=== PATIENT | female | born 1940 | race Hispanic/Latino ===

== ENCOUNTER 2018-01-21 09:45 | Emergency (ER) | payer MEDICARE ==
[~2018-01-21 09:45] MED LIST: CHOL50004 PO; EZET10 PO; GABA-531 PO; LINA5TAB PO; LIOT5TAB8 PO; LOSA100T29 PO; METF500T6 PO
== END 2018-01-21 11:28 | disposition home or self-care (01) ==
LOC: EDH 09:45
DX: S80.211A Abrasion, right knee, initial encounter (principal); S00.01XA Abrasion of scalp, initial encounter; E11.9 Type 2 diabetes mellitus without complications; E78.5 Hyperlipidemia, unspecified; I10 Essential (primary) hypertension; Z90.710 Acquired absence of both cervix and uterus; Z98.890 Other specified postprocedural states; W18.39XA Other fall on same level, initial encounter; Y93.01 Activity, walking, marching and hiking; Y92.89 Other specified places as the place of occurrence of the external cause; Y99.8 Other external cause status
CPT/HCPCS: 70450; 73562

== ENCOUNTER → 2018-08-15 | Outpatient (CLI) | payer MEDICARE ==
[~2018-08-15] MED LIST changes: +LOSA100T20 PO; -LOSA100T29 PO; +METF-444 PO; -METF500T6 PO
== END | disposition home or self-care (01) ==
LOC: RAH 14:53
PROVIDERS: ATTEND Family Medicine
DX: M79.642 Pain in left hand (principal); R60.0 Localized edema; R29.898 Other symptoms and signs involving the musculoskeletal system
CPT/HCPCS: 73218

== ENCOUNTER 2018-08-27 14:18 | Emergency (ER) | payer MEDICARE ==
[2018-08-27] MEDS ORDERED: ALBUTEROL SULFATE 0.083% 2.5 MG/3 ML INH IH ONE (14:42)
[2018-08-27 15:08] LABS: BASOPHILS % (AUTO) 0.1 % (0.0-5.0); EOSINOPHILS % (AUTO) 0.4 % (0.0-8.0); HEMATOCRIT 38.1 % (36-48); LYMPHOCYTES % (AUTO) 32.8 % (21.0-51.0); MEAN CORPUSCULAR HEMOGLOBIN 29.3 pg (27.0-33.0); MEAN CORPUSCULAR HGB CONC 32.9 g/dL (32.0-36.0); MEAN CORPUSCULAR VOLUME 88.8 fL (79-99); MONOCYTES % (AUTO) 11.3 % (3.0-13.0); NEUTROPHILS % (AUTO) 55.4 % (40.0-77.0); NUCLEATED RED BLOOD CELLS 0.1 % (0.0-0.19); PLATELET COUNT (AUTO) 285 K/uL (130-400); RED BLOOD CELL COUNT(AUTO) 4.29 MIL/uL (4.00-5.50); RED CELL DISTRIBUTION WIDTH 14.6 % (11.0-15.5); WHITE BLOOD COUNT (AUTO) 11.1 K/uL (4.8-10.8)
[2018-08-27 16:02] LABS: CREATININE 1.4 mg/dL (0.5-1.5)
[2018-08-27 16:03] LABS: B-TYPE NATRIURETIC PEPTIDE 48 pg/mL (0-100)
== END 2018-08-27 16:41 | disposition home or self-care (01) ==
LOC: EDH 14:18
DX: J20.9 Acute bronchitis, unspecified (principal); I10 Essential (primary) hypertension; E11.9 Type 2 diabetes mellitus without complications; E78.5 Hyperlipidemia, unspecified; Z90.710 Acquired absence of both cervix and uterus; Z98.890 Other specified postprocedural states
CPT/HCPCS: 36415; 71046; 80048; 83880; 84484; 85025; 87804; 93005; 94640

== ENCOUNTER → 2018-10-24 | Outpatient (CLI) | payer MEDICARE ==
[~2018-10-24] MED LIST changes: -LOSA100T20 PO; +LOSA100T58 PO
== END | disposition home or self-care (01) ==
LOC: RAH 12:26
PROVIDERS: ATTEND Family Medicine
DX: S83.241A Other tear of medial meniscus, current injury, right knee, initial encounter (principal); S83.281A Other tear of lateral meniscus, current injury, right knee, initial encounter; S83.411A Sprain of medial collateral ligament of right knee, initial encounter; M17.11 Unilateral primary osteoarthritis, right knee; M25.461 Effusion, right knee; X58.XXXA Exposure to other specified factors, initial encounter; Y93.89 Activity, other specified; Y92.89 Other specified places as the place of occurrence of the external cause; Y99.8 Other external cause status
CPT/HCPCS: 73721

== ENCOUNTER 2019-12-24 01:44 | Inpatient (IN) | payer MEDICARE ==
[~2019-12-24] VITALS: Ht 165.1 cm; Wt 85.3 kg
[~2019-12-24 01:44] MED LIST changes: -EZET10 PO; +EZET10TA13 PO; +LIOT5TAB11 PO; -LIOT5TAB8 PO
[2019-12-24 02:18] LABS: BASOPHILS % (AUTO) 0.3 % (0.0-5.0); EOSINOPHILS % (AUTO) 2.8 % (0.0-8.0); HEMATOCRIT 33.2 % (36-48); LYMPHOCYTES % (AUTO) 26.5 % (21.0-51.0); MEAN CORPUSCULAR HEMOGLOBIN 29.7 pg (27.0-33.0); MEAN CORPUSCULAR HGB CONC 32.5 g/dL (32.0-36.0); MEAN CORPUSCULAR VOLUME 91.2 fL (79-99); MONOCYTES % (AUTO) 6.7 % (3.0-13.0); NEUTROPHILS % (AUTO) 62.9 % (40.0-77.0); PLATELET COUNT (AUTO) 226 K/uL (130-400); RED BLOOD CELL COUNT(AUTO) 3.64 MIL/uL (4.00-5.50); RED CELL DISTRIBUTION WIDTH 14.5 % (11.0-15.5); WHITE BLOOD COUNT (AUTO) 11.8 K/uL (4.8-10.8)
[2019-12-24] MEDS ORDERED: ONDANSETRON HCL 4 MG/2 ML VIAL ONE (02:19)
[2019-12-24] MEDS ORDERED: MORPHINE SULFATE 2 MG/ML 1ML SYG ONE (02:20)
[2019-12-24 02:29] LABS: INR 0.94 (0.85-1.15); PARTIAL THROMBOPLASTIN TIME 26.4 SEC (26.3-35.5); PROTHROMBIN TIME 10.2 SEC (9.6-11.6)
[2019-12-24 02:34] LABS: CREATININE 1.6 mg/dL (0.5-1.5); POTASSIUM 4.7 mmol/L (3.5-5.1)
[2019-12-24 02:39] LABS: ALBUMIN 3.8 g/dL (3.5-5.0); BILIRUBIN,TOTAL 0.4 mg/dL (0.2-1.0); TOTAL PROTEIN, SERUM 7.3 g/dL (6.0-8.3)
[2019-12-24 03:58] LABS: APPEARANCE,URINE Clear (CLEAR); BILIRUBIN,URINE Negative (NEGATIVE); COLOR,URINE Yellow (YELLOW); GLUCOSE, URINE (UA) Negative (NEGATIVE); KETONES,URINE Trace mg/dL (NEGATIVE); LEUKOCYTE ESTERASE ,URINE Negative (NEGATIVE); NITRATE,URINE Negative (NEGATIVE); OCCULT BLOOD,URINE Negative (NEGATIVE); PROTEIN,URINE Negative (NEGATIVE)
[2019-12-24 06:00] VITALS: BP 162/81
[2019-12-24] MEDS ORDERED: HYDRALAZINE HCL 20 MG/ML VIAL IV PRN (06:30)
[2019-12-24] MEDS: SODIUM CHLORIDE 0.9% 1000ML 1,000 ML IV SCH ×2 (06:30→21:57)
[2019-12-24] MEDS ORDERED: ONDANSETRON HCL 4 MG/2 ML VIAL IVP PRN (06:30)
[2019-12-24] MEDS ORDERED: CLONIDINE HCL 0.1 MG TABLET PO PRN (06:30)
[2019-12-24] MEDS ORDERED: NALOXONE HCL 0.4 MG/1 ML ML IVP PRN (06:45)
[2019-12-24] MEDS ORDERED: ACETAMINOPHEN 325 MG TAB PO PRN (06:45)
[2019-12-24] MEDS ORDERED: MORPHINE SULFATE 2 MG/ML 1ML SYG IVP PRN (06:45)
[2019-12-24] MEDS ORDERED: LINA5TAB PO (06:48)
[2019-12-24] MEDS ORDERED: OLOP2.5D5 OU (06:48)
[2019-12-24] MEDS ORDERED: PIOG30TA70 PO (06:48)
[2019-12-24] MEDS ORDERED: NAPR-1023 PO (06:48)
[2019-12-24] MEDS: MORPHINE SULFATE 2 MG/ML 1ML SYG IVP PRN ×4 (07:23→19:21)
[2019-12-24] MEDS: INSULIN R PO SS1 SQ SCH ×4 (07:30→21:00)
[2019-12-24 08:29] VITALS: BP 147/63
[2019-12-24] MEDS ORDERED: LOSARTAN 100 MG TABLET PO SCH (09:00)
[2019-12-24] MEDS: PANTOPRAZOLE SODIUM 40 MG TABLET.DR PO SCH ×2 (10:10→21:57)
[2019-12-24 11:16] VITALS: BP 146/70
[2019-12-24] MEDS ORDERED: ZOLPIDEM TARTRATE 5 MG TAB PO PRN (11:30)
[2019-12-24] MEDS ORDERED: METOCLOPRAMIDE 10 MG/2 ML VIAL IVP PRN (11:30)
[2019-12-24] MEDS ORDERED: ALPRAZOLAM 0.5 MG TABLET PO PRN (11:30)
[2019-12-24] MEDS ORDERED: DOCUSATE SODIUM 100 MG CAP PO PRN (11:30)
[2019-12-24] MEDS ORDERED: LIDOCAINE HCL-MPF 1% 2ML VIAL IV PRN (11:45)
[2019-12-24] MEDS ORDERED: DEXTROSE 50%-WATER 50 ML DISP.SYRIN IV PRN (11:45)
[2019-12-24] MEDS ORDERED: POTASSIUM CHLORIDE 20 MEQ ERTAB PO PRN (11:45)
[2019-12-24] MEDS ORDERED: POTASSIUM CHLORIDE 10% ELIXIR 20 MEQ/15 ML UDCUP PO PRN (11:45)
[2019-12-24] MEDS ORDERED: POTASSIUM CHLORIDE 20MEQ/100ML 100 ML IV PRN (11:45)
[2019-12-24] MEDS ORDERED: GLUCAGON 1MG KIT 1 MG ML IM PRN (11:45)
--- NOTE | 2019-12-24 12:28 | NUR ---
CALLED DR VIERA. 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 STATED HE IS GOING TO ENTER ORDER LATER. NO SX TODAY, POSSIBLE TOMORROW. ANTI-ROTATION BOOT ORDERED.
[2019-12-24] MEDS ORDERED: CEFAZOLIN SODIUM 1 GM VIAL IVP PRN (14:00)
[2019-12-24 16:15] VITALS: BP 150/66
--- NOTE | 2019-12-24 18:54 | NUR ---
INITIAL CM ASSESSMENT WITH DAUGHTER WENT TO PATIENT ROOM,BUT SHE STATED BEST TO CALL HER DAUGHTER SHE WAS TOO SLEEPY TO PROVIDE HISTORY; CALLED SANIYA, DAUGHTER- PATIENT LIVES WITH HER, IS MOSTLY INDEPENDENT OF ADLS, HAS PROVIDER HOURS 20/WK, NOT A FAMILY MEMBER- HOME IS SAFE AND ACCESSIBLE WITH A SMALL STEP OUTSIDE. NORMALLY USES NO DME, NOT EVEN A SHOWER CHAIR, BUT TWISTED HER KNEE LAST WEEK AND WAS USING A CANE- PUT THE OWN WRONG, FELL, BROKE HIP. ADVISED PATIENTS DAUGHTER THAT THERAPY AT A FACLITY WILL BE RECOMMENDED. AND THAT CM WILL FOLLOW UP POST SURGERY Addendum: 12/24/19 at 1859 by JEANCARLOS FARRAR RN CM Amended: Links added.
[2019-12-24 20:00] VITALS: BP 150/72
[2019-12-24] MEDS: LIOTHYRONINE 5 MCG PO SCH (21:00)
[2019-12-24] MEDS: EZETIMIBE 10 MG TAB PO SCH (21:57)
[2019-12-24 23:45] VITALS: BP 135/73
[2019-12-25] VITALS (25 sets, daily range): BP systolic 103–158; BP diastolic 50–79
[2019-12-25] MEDS: MORPHINE SULFATE 2 MG/ML 1ML SYG IVP PRN ×3 (04:11→14:08)
[2019-12-25 05:15] LABS: HEMATOCRIT 31.4 % (36-48); MEAN CORPUSCULAR HEMOGLOBIN 28.6 pg (27.0-33.0); MEAN CORPUSCULAR HGB CONC 31.5 g/dL (32.0-36.0); MEAN CORPUSCULAR VOLUME 90.8 fL (79-99); PLATELET COUNT (AUTO) 192 K/uL (130-400); RED BLOOD CELL COUNT(AUTO) 3.46 MIL/uL (4.00-5.50); RED CELL DISTRIBUTION WIDTH 14.5 % (11.0-15.5); WHITE BLOOD COUNT (AUTO) 8.3 K/uL (4.8-10.8)
[2019-12-25 05:28] LABS: CREATININE 1.1 mg/dL (0.5-1.5); POTASSIUM 4.2 mmol/L (3.5-5.1)
[2019-12-25 05:30] LABS: INR 0.95 (0.85-1.15); PARTIAL THROMBOPLASTIN TIME 28.8 SEC (26.3-35.5); PROTHROMBIN TIME 10.3 SEC (9.6-11.6)
[2019-12-25] MEDS: INSULIN R PO SS1 SQ SCH ×4 (06:39→21:00)
[2019-12-25] MEDS: LIOTHYRONINE 5 MCG PO SCH ×2 (09:00→21:00)
[2019-12-25] MEDS ORDERED: PAZEO OU PRN (09:00)
[2019-12-25] MEDS: PANTOPRAZOLE SODIUM 40 MG TABLET.DR PO SCH ×2 (09:30→21:12)
[2019-12-25] MEDS: LOSARTAN 100 MG TABLET PO SCH (09:30)
--- NOTE | 2019-12-25 10:34 | NUR ---
CM NOTE DAVE spoke with patient. She states she lives with daughter, Gem Rodriguez, [phone]. No home health but does have PHC with [facility] X 33.25 hours a week. DME: cane, BPM, glucometer (no insulin). Patient states she needs help with ADL's and does not drive. Family assists with ADL's. PCP is Dr. Frankie Livingston. Pharmacy is [facility] located on [address]. DCP is home.
--- NOTE | 2019-12-25 10:53 | NUR ---
PAIN patient denies pain at rest Addendum: 12/25/19 at 1054 by TAYLER BISHOP RN RN Amended: Links added.
--- NOTE | 2019-12-25 11:12 | NUR ---
RD NOTIFICATION PT NPO FOR PROCEDURE. WHEN MEDICALLY FEASIBLE RECOMMEND ADVANCE DIET TOLERATED TO HEART HEALTHY, 75GM CC DIET ORDER, VANILLA GLUCERNA BID. PT WITH PREVIOUS DECREASED APPETITE, LIKELY RELATED TO PAIN. PT LBM 12/23/19. RD TO CONTINUE TO MONITOR. PLEASE NOTIFY RD ADDITIONAL NUTRITION CONCERNS ARISE. THANK YOU. Addendum: 12/25/19 at [address] Amended: Links added.
[2019-12-25] MEDS ORDERED: KETOROLAC TROMETHAMINE 30MG/ML ONE (15:08)
[2019-12-25] MEDS ORDERED: PROPOFOL 10 MG/ML 20ML VIAL IV ONE (15:08)
[2019-12-25] MEDS ORDERED: DEXAMETHASONE SOD PHOSPHATE 10MG/ML 1ML VIAL ONE (15:08)
[2019-12-25] MEDS ORDERED: ONDANSETRON HCL 4 MG/2 ML VIAL ONE (15:08)
[2019-12-25] MEDS ORDERED: LIDOCAINE PF 2% 5ML ABBOJECT ONE (15:08)
[2019-12-25] MEDS ORDERED: FENTANYL CITRATE PF 50 MCG/1 ML 2ML VIAL ONE (15:09)
[2019-12-25] MEDS ORDERED: MIDAZOLAM HCL 1 MG/ML 2ML VIAL ONE (15:09)
[2019-12-25] MEDS ORDERED: ROPIVACAINE 0.5% 5MG/ML 30ML IJ ONE (15:11)
[2019-12-25] MEDS ORDERED: ROCURONIUM 10MG/1ML SYR 10 MG/ML ML ONE ×2 (15:22→16:13)
[2019-12-25] MEDS ORDERED: TRANEXAMIC ACID 1000MG/10ML ONE (15:49)
[2019-12-25] MEDS ORDERED: GLYCOPYRROLATE 1 MG/5 ML SYRINGE ONE (17:19)
[2019-12-25] MEDS ORDERED: NEOSTIGMINE 5MG/5ML SYR IV ONE (17:19)
[2019-12-25] MEDS: CEFAZOLIN SODIUM 1 GM VIAL IVP SCH ×2 (18:00→23:36)
[2019-12-25] MEDS: EZETIMIBE 10 MG TAB PO SCH (21:12)
--- NOTE | 2019-12-25 21:15 | NUR ---
MEDS SHIFT ASSESSMENT DONE, PLEASE REFER TO CHART. DUE MEDS ADMINISTERED, TOLERATED WELL. POST OP V/S STABLE. PT DENIES ANY PAINS AT THIS TIME. KEPT RESTED AND COMFORTABLE. CALL LIGHT WITHIN REACH. Addendum: 12/25/19 at 2328 by ISABELLE ENRIQUE RN RN Amended: Links added.
[2019-12-25] MEDS: SODIUM CHLORIDE 0.9% 1000ML 1,000 ML IV SCH ×2 (21:42→23:35)
[2019-12-26] VITALS (7 sets, daily range): BP systolic 94–126; BP diastolic 46–68
--- NOTE | 2019-12-26 02:00 | NUR ---
ROUNDS PT RESTING WELL, FAIRLY ASLEEP. NO DISTRESS NOTED. KEPT RESTED AND COMFORTABLE. CALL LIGHT WITHIN REACH.
--- NOTE | 2019-12-26 05:10 | NUR ---
ROUNDS METAL CUTTER IN TO DRAW BLOOD. PT DENIES ANY NEEDS AT THIS TIME. KEPT COMFORTABLE. FOR MORE CARE.
[2019-12-26 05:37] LABS: EOSINOPHILS % (AUTO) 1.8 % (0.0-8.0); HEMATOCRIT 23.9 % (36-48); LYMPHOCYTES % (AUTO) 8.3 % (21.0-51.0); MEAN CORPUSCULAR HEMOGLOBIN 29.6 pg (27.0-33.0); MEAN CORPUSCULAR HGB CONC 32.2 g/dL (32.0-36.0); MEAN CORPUSCULAR VOLUME 91.9 fL (79-99); MONOCYTES % (AUTO) 4.9 % (3.0-13.0); NEUTROPHILS % (AUTO) 84.7 % (40.0-77.0); PLATELET COUNT (AUTO) 163 K/uL (130-400); RED CELL DISTRIBUTION WIDTH 14.4 % (11.0-15.5); WHITE BLOOD COUNT (AUTO) 11.4 K/uL (4.8-10.8)
[2019-12-26] MEDS: INSULIN R PO SS1 SQ SCH ×4 (05:49→20:27)
[2019-12-26 05:50] LABS: CREATININE 1.1 mg/dL (0.5-1.5); POTASSIUM 4.3 mmol/L (3.5-5.1)
[2019-12-26] MEDS: PANTOPRAZOLE SODIUM 40 MG TABLET.DR PO SCH ×2 (08:50→20:24)
[2019-12-26] MEDS: LOSARTAN 100 MG TABLET PO SCH (08:50)
[2019-12-26] MEDS: NAPROXEN 500 MG TABLET PO PRN ×2 (08:52→20:25)
[2019-12-26] MEDS: LIOTHYRONINE 5 MCG PO SCH ×2 (09:00→20:27)
[2019-12-26] MEDS: CEFAZOLIN SODIUM 1 GM VIAL IVP SCH (10:26)
--- NOTE | 2019-12-26 11:28 | NUR ---
discussed plan of care with patient and with profile stitching machine operator Advised by [facility] staff that patient does not want to go to a facility. Discussed with STRIPPER [facility]EX- had talked to patient at bedside about going to a STR, WR or [facility]- patient agreed, but I iwll need to talk to daughter. Patient states that her sister told her that she will catch COVID and if she goes to a facility, Physical therapist is recommending rehab and patient aware. Advised STRIPPER LATEX will talk to family because patient will not be able to do outpatient rehab & home health PT is just 2-3 days week. Addendum: 12/26/19 at 1203 by JEANCARLOS FARRAR RN Amended: Links added.
[2019-12-26] MEDS: POLYETHYLENE GLYCOL 3350 17 GM POWD.PACK PO SCH (15:12)
--- NOTE | 2019-12-26 15:20 | NUR ---
REFERRAL TO [facility] CONSENT OBTAINED FROM DAUGHTER AND PATIENT- NO TONY MADE RE NO INFECIOTN AT [facility], BUT IP REHAB IS STAFFED WELL AND THERPAY IS GOOD. REFERRAL SENT. CALL TO [facility]. WILL SEND COVID FORM
[2019-12-26] MEDS: SODIUM CHLORIDE 0.9% 1000ML 1,000 ML IV SCH (18:30)
[2019-12-26] MEDS: APIXABAN 2.5 MG TABLET PO SCH (20:24)
[2019-12-26] MEDS: EZETIMIBE 10 MG TAB PO SCH (20:25)
--- NOTE | 2019-12-26 20:25 | NUR ---
MEDS SHIFT ASSESSMENT DONE, PLEASE REFER TO CHART. PT CLAIMS OF RT HIP SX SITE PAINS. DUE MEDS ADMINISTERED, NAPROSYN PO GIVEN FOR PAINS. PCP IN TO GIVE PT A BED BATH. WILL RE-ASSESS PT. Addendum: 12/26/19 at 2137 by ISABELLE ENRIQUE RN RN Amended: Links added.
--- NOTE | 2019-12-26 21:50 | NUR ---
BATH PCP IN AND GAVE PT A BED BATH, TOLERATED ACTIVITY WELL. STILL NO URINE OUTPUT AT THIS TIME. PT IS DUE TO VOID POST F/C REMOVAL. WILL CONTINUE TO MONITOR.
[2019-12-27] VITALS (7 sets, daily range): BP systolic 98–138; BP diastolic 47–61
--- NOTE | 2019-12-27 01:30 | NUR ---
ROUNDS PT FAIRLY ASLEEP WITH RESPIRATIONS EVEN AND UNLABORED. NO NOTED DISTRESS. KEPT UNDISTURBED FOR NOW. WILL MONITOR PT. CALL LIGHT WITHIN REACH.
--- NOTE | 2019-12-27 05:25 | NUR ---
ROUNDS PT IS ALREADY AWAKE. NO DISTRESS NOTED. NO CONCERNS VERBALIZED. KEPT COMFORTABLE. ABDUCTOR PILLOW STILL ON. FOR MORE CARE.
[2019-12-27] MEDS: INSULIN R PO SS1 SQ SCH ×4 (05:50→21:00)
[2019-12-27 06:20] LABS: MEAN CORPUSCULAR HEMOGLOBIN 28.9 pg (27.0-33.0); MEAN CORPUSCULAR HGB CONC 32.2 g/dL (32.0-36.0); MEAN CORPUSCULAR VOLUME 89.7 fL (79-99); PLATELET COUNT (AUTO) 149 K/uL (130-400); RED BLOOD CELL COUNT(AUTO) 2.32 MIL/uL (4.00-5.50); RED CELL DISTRIBUTION WIDTH 14.6 % (11.0-15.5); WHITE BLOOD COUNT (AUTO) 8.3 K/uL (4.8-10.8)
[2019-12-27 06:28] LABS: POTASSIUM 3.8 mmol/L (3.5-5.1)
[2019-12-27 06:48] LABS: HEMATOCRIT 20.8 % (36-48)
--- NOTE | 2019-12-27 07:00 | NUR ---
PAGE TRIED TO PAGE MAGNETIC OBSERVER FOR BENCHMARK BUT ANSWERING SERVICE IS HAVING TROUBLE WITH MAGNETIC OBSERVER STAFF AND ADVICE TO CALL AFTER 7AM.
--- NOTE | 2019-12-27 07:25 | NUR ---
RE-PAGED MAINORD GIANA ELIAS, AUTOMOTIVE GENERAL SALES MANAGER FOR [employer]CH[employer], VIA ANSWERING SERVICE TO REFER CRITICAL VALUES. AWAITING CALL BACK.
[2019-12-27 08:06] LABS: HEMATOCRIT 20.4 % (36-48)
[2019-12-27] MEDS: APIXABAN 2.5 MG TABLET PO SCH ×3 (08:35→20:41)
[2019-12-27] MEDS: LIOTHYRONINE 5 MCG PO SCH ×2 (08:35→20:42)
[2019-12-27] MEDS: LOSARTAN 100 MG TABLET PO SCH (09:41)
[2019-12-27] MEDS: POLYETHYLENE GLYCOL 3350 17 GM POWD.PACK PO SCH (09:42)
[2019-12-27] MEDS: PANTOPRAZOLE SODIUM 40 MG TABLET.DR PO SCH ×2 (09:42→20:42)
[2019-12-27] MEDS: NAPROXEN 500 MG TABLET PO PRN ×2 (09:47→20:44)
[2019-12-27] MEDS: SODIUM CHLORIDE 0.9% 1000ML 1,000 ML IV SCH (16:19)
--- NOTE | 2019-12-27 17:00 | NUR ---
ACCEPTED AT [facility]
[2019-12-27] MEDS: LACTULOSE 20 GM/30 ML UDCUP PO PRN (17:58)
[2019-12-27] MEDS: DOCUSATE SODIUM 100 MG CAP PO SCH (20:42)
[2019-12-27] MEDS: EZETIMIBE 10 MG TAB PO SCH (20:42)
[2019-12-28 03:52] VITALS: BP 139/70
[2019-12-28 04:17] LABS: BASOPHILS % (AUTO) 0.2 % (0.0-5.0); EOSINOPHILS % (AUTO) 3.6 % (0.0-8.0); HEMATOCRIT 24.5 % (36-48); LYMPHOCYTES % (AUTO) 20.3 % (21.0-51.0); MEAN CORPUSCULAR HEMOGLOBIN 30.1 pg (27.0-33.0); MEAN CORPUSCULAR HGB CONC 33.5 g/dL (32.0-36.0); MEAN CORPUSCULAR VOLUME 90.1 fL (79-99); MONOCYTES % (AUTO) 9.7 % (3.0-13.0); NEUTROPHILS % (AUTO) 65.6 % (40.0-77.0); PLATELET COUNT (AUTO) 168 K/uL (130-400); RED BLOOD CELL COUNT(AUTO) 2.72 MIL/uL (4.00-5.50); RED CELL DISTRIBUTION WIDTH 14.9 % (11.0-15.5); WHITE BLOOD COUNT (AUTO) 8.3 K/uL (4.8-10.8)
[2019-12-28 04:33] LABS: POTASSIUM 3.8 mmol/L (3.5-5.1)
[2019-12-28] MEDS: INSULIN R PO SS1 SQ SCH ×3 (05:43→15:41)
[2019-12-28 08:14] VITALS: BP 140/54
[2019-12-28] MEDS: LIOTHYRONINE 5 MCG PO SCH (09:00)
[2019-12-28] MEDS: LACTULOSE 20 GM/30 ML UDCUP PO PRN (11:01)
[2019-12-28] MEDS: PANTOPRAZOLE SODIUM 40 MG TABLET.DR PO SCH (11:01)
[2019-12-28] MEDS: POLYETHYLENE GLYCOL 3350 17 GM POWD.PACK PO SCH (11:01)
[2019-12-28] MEDS: NAPROXEN 500 MG TABLET PO PRN (11:01)
[2019-12-28] MEDS: LOSARTAN 100 MG TABLET PO SCH (11:01)
[2019-12-28] MEDS: APIXABAN 2.5 MG TABLET PO SCH (11:01)
[2019-12-28] MEDS: DOCUSATE SODIUM 100 MG CAP PO SCH (11:01)
[2019-12-28 11:02] VITALS: BP 108/52
[2019-12-28] MEDS: SODIUM CHLORIDE 0.9% 1000ML 1,000 ML IV SCH (11:02)
[2019-12-28] MEDS ORDERED: APIX2.5T PO (11:53)
[2019-12-28 15:35] VITALS: BP 143/90
--- NOTE | 2019-12-28 15:49 | NUR ---
RD FOLLOW UP NOTE PT TOLERATING CURRENT DIET ORDER, HOWEVER POOR PO AT TIME OF SCREEN DUE TO DECREASED APPETITE. PT WITH CONSTIPATION (LBM 12/23/19) WITH LAXATIVES/STOOL SOFTENER IN PLACE. ENSURE IN PLACE. RD TO CONTINUE TO MONITOR. PLEASE NOTIFY ADDITIONAL NUTRITION CONCERNS ARISE. THANK YOU. Addendum: 12/28/19 at [address] Amended: Links added.
--- NOTE | 2019-12-28 17:34 | NUR ---
BO GAR FROM [facility] CALLED REGARDING PT WITH NO BM SINCE 12/23/19. CONG REPORTS HE SPOKE TO ADMITTING DOCTOR AND SAID " LONG YOU ALL GIVE HER 1 OR 2 FLEETS ENEMA, SEE IF SHE HAS ANY RESULTS AND IF SHE DOESNT OK TO TRANSFER HER" TO [facility]. BO MITTAL CALLED CONG EARLIER FOR REPORTS BUT CONG INFORMED HER UNABLE TO RECEIVE PATIENT DUE TO PATIENT'S NO BM SINCE 12/23/19. COLACE HAS BEEN STARTED SINCE YESTERDAY. LACTULOSE PO GIVEN YESTERDAY AND TODAY WITH PENDING RESULTS. PT REPORTS PASSING GAS. BOWEL SOUNDS ACTIVE. ABDOMEN NONDISTENDED. ORDER FOR FLEETS ENEMA X1 ADMINISTERED BY BO BUITRAGO. CALLING EMS FOR TRANSFER DISCHARGE.
== END 2019-12-28 18:51 | DRG 470 ==
LOC: EDH 01:44 → EDHIP 03:15 → 4BH 05:57 → 3BH 12-25 16:20
PROVIDERS: ADMIT Internal Medicine Pulmonary Disease; ATTEND Internal Medicine Pulmonary Disease
PROC: 0SRR0JZ Replacement of Right Hip Joint, Femoral Surface with Synthetic Substitute, Open Approach (ICD-10-PCS; principal; 2019-12-25 15:08)
PROC: 30233N1 Transfusion of Nonautologous Red Blood Cells into Peripheral Vein, Percutaneous Approach (ICD-10-PCS; 2019-12-27)
DX: S72.001A Fracture of unspecified part of neck of right femur, initial encounter for closed fracture (principal); N17.9 Acute kidney failure, unspecified; S00.93XA Contusion of unspecified part of head, initial encounter; E66.9 Obesity, unspecified; E03.9 Hypothyroidism, unspecified; E78.5 Hyperlipidemia, unspecified; N18.9 Chronic kidney disease, unspecified; I12.9 Hypertensive chronic kidney disease with stage 1 through stage 4 chronic kidney disease, or unspecified chronic kidney disease; E11.22 Type 2 diabetes mellitus with diabetic chronic kidney disease; Z79.84 Long term (current) use of oral hypoglycemic drugs; K59.00 Constipation, unspecified; D64.9 Anemia, unspecified; G47.00 Insomnia, unspecified; Z90.710 Acquired absence of both cervix and uterus; W01.0XXA Fall on same level from slipping, tripping and stumbling without subsequent striking against object, initial encounter; Y93.89 Activity, other specified; Y92.89 Other specified places as the place of occurrence of the external cause; Y99.8 Other external cause status
CPT/HCPCS: 36415; 36430; 70450; 72125; 73502; 73552; 74176; 80048; 80053; 81003; 82550; 82948; 83605; 84484; 85014; 85018; 85025; 85027; 85610; 85730; 86850; 86900; 86901; 86922; 88305; 88311; 93005; 97039; C1776; G0378; J0690; J1100; J1885; J2001; J2250; J2405; J2704; J2710; J2795; J3010; J3490; J7030; P9016

== ENCOUNTER → 2021-04-22 | Outpatient (CLI) | payer MEDICARE ==
[~2021-04-22] MED LIST changes: +APIX2.5T PO; -CHOL50004 PO; -GABA-531 PO; +IOHEXOL-350 50ML VIAL IV ONE; +NAPR-1023 PO; +OLOP2.5D5 OU; +PIOG30TA70 PO
== END | disposition home or self-care (01) ==
LOC: RAH 13:26
PROVIDERS: ATTEND Family Medicine
DX: R91.8 Other nonspecific abnormal finding of lung field (principal); I70.0 Atherosclerosis of aorta
CPT/HCPCS: 71270; Q9967 ×2

== ENCOUNTER 2023-08-01 11:48 | Emergency (ER) | payer MEDICARE ==
[~2023-08-01] VITALS: Ht 154.9 cm; Wt 79.8 kg
[~2023-08-01 11:48] MED LIST changes: -EZET10TA13 PO; +EZET10TA81 PO; -IOHEXOL-350 50ML VIAL IV ONE; -LOSA100T58 PO; +LOSA100T59 PO
[2023-08-01 13:30] LABS: BASOPHILS # (AUTO) 0.01 K/uL (0.00-0.20); BASOPHILS % (AUTO) 0.1 % (0.0-5.0); EOSINOPHILS # (AUTO) 0.27 K/uL (0.00-0.70); EOSINOPHILS % (AUTO) 3.9 % (0.0-8.0); HEMATOCRIT 35.1 % (36-48); IMMATURE GRANULOCYTE ABSOLUTE 0.01 K/uL (0-1); LYMPHOCYTES # (AUTO) 2.6 K/uL (1.0-4.8); LYMPHOCYTES % (AUTO) 37.6 % (21.0-51.0); MEAN CORPUSCULAR HEMOGLOBIN 29.2 pg (27.0-33.0); MEAN CORPUSCULAR HGB CONC 32.2 g/dL (32.0-36.0); MEAN CORPUSCULAR VOLUME 90.7 fL (79-99); MONOCYTES # (AUTO) 0.8 K/uL (0.1-1.0); MONOCYTES % (AUTO) 10.7 % (3.0-13.0); NEUTROPHILS # (AUTO) 3.3 K/uL (1.8-7.7); NEUTROPHILS % (AUTO) 47.6 % (40.0-77.0); PLATELET COUNT (AUTO) 273 K/uL (130-400); RED BLOOD CELL COUNT(AUTO) 3.87 MIL/uL (4.00-5.50); RED CELL DISTRIBUTION WIDTH 13.8 % (11.0-15.5)
[2023-08-01 13:41] LABS: CREATININE 1.5 mg/dL (0.5-1.5)
[2023-08-01 13:45] LABS: ALBUMIN 3.2 g/dL (3.5-5.0); BILIRUBIN,TOTAL 0.2 mg/dL (0.2-1.0); MAGNESIUM 1.7 mg/dL (1.80-2.40)
[2023-08-01] MEDS ORDERED: 0.9%NACL 1000ML 1,000 ML IV ONE (14:00)
[2023-08-01 14:18] LABS: APPEARANCE,URINE CLEAR (CLEAR); BILIRUBIN,URINE NEGATIVE (NEGATIVE); COLOR,URINE YELLOW (YELLOW); GLUCOSE, URINE (UA) NEGATIVE (NEGATIVE); KETONES,URINE NEGATIVE (NEGATIVE); LEUKOCYTE ESTERASE ,URINE 500 Leu/uL (NEGATIVE); NITRATE,URINE NEGATIVE (NEGATIVE); OCCULT BLOOD,URINE NEGATIVE (NEGATIVE); PROTEIN,URINE NEGATIVE (NEGATIVE); UROBILINOGEN,URINE 0.2 mg/dL (0.2-1.0)
[2023-08-01 14:19] LABS: ADD UA MICROSCOPIC YES
[2023-08-01 14:29] LABS: BACTERIA,URINE FEW /HPF (None Seen); MUCUS,URINE RARE LPF (None Seen); RBC,URINE 0-1 /HPF (0-1); SQUAMOUS EPITHELIAL CELL,UR RARE /HPF (0-2); TRANSITIONAL EPI CELLS,URINE RARE /HPF (None Seen)
[2023-08-01] MEDS ORDERED: MAGNESIUM 2GM PREMIX 50ML 50 ML IV SCH (14:30)
[2023-08-01] MEDS ORDERED: LEVOFLOXACIN 500 MG/D5W 100 ML 100 ML IV SCH (16:30)
[2023-08-01 18:25] VITALS: BP 124/56; PULSE 68; RESP 18; O2SAT 100
[2023-08-01] MEDS ORDERED: ONDA4TAB10 PO (19:00)
[2023-08-01] MEDS ORDERED: CIPR-278 PO (19:00)
== END 2023-08-01 19:16 | disposition home or self-care (01) ==
LOC: EDH 11:48
DX: K52.9 Noninfective gastroenteritis and colitis, unspecified (principal); N30.00 Acute cystitis without hematuria; E86.0 Dehydration
CPT/HCPCS: 99285; 74176; 96365; 96367; 83735; 80053; 83880; 85025; 87088; 81001; 36415; 93005; J3475; J1956

== ENCOUNTER 2024-11-01 08:18 | Observation (INO) | payer MEDICARE ==
[2024-10-30 13:10] LABS: BASOPHILS # (AUTO) 0.03 K/uL (0.00-0.20); BASOPHILS % (AUTO) 0.6 % (0.0-5.0); EOSINOPHILS # (AUTO) 0.12 K/uL (0.00-0.70); EOSINOPHILS % (AUTO) 2.2 % (0.0-8.0); HEMATOCRIT 33.5 % (36-48); LYMPHOCYTES # (AUTO) 2.1 K/uL (1.0-4.8); LYMPHOCYTES % (AUTO) 38.8 % (21.0-51.0); MEAN CORPUSCULAR HEMOGLOBIN 30.1 pg (27.0-33.0); MEAN CORPUSCULAR HGB CONC 31.9 g/dL (32.0-36.0); MEAN CORPUSCULAR VOLUME 94.4 fL (79-99); MONOCYTES # (AUTO) 0.6 K/uL (0.1-1.0); MONOCYTES % (AUTO) 10.5 % (3.0-13.0); NEUTROPHILS # (AUTO) 2.6 K/uL (1.8-7.7); NEUTROPHILS % (AUTO) 47.9 % (40.0-77.0); PLATELET COUNT (AUTO) 192 K/uL (130-400); RED BLOOD CELL COUNT(AUTO) 3.55 MIL/uL (4.00-5.50); RED CELL DISTRIBUTION WIDTH 14.1 % (11.0-15.5); WHITE BLOOD COUNT (AUTO) 5.3 K/uL (4.8-10.8)
[2024-10-30 13:19] LABS: ALBUMIN 3.8 g/dL (3.5-5.0); CARBON DIOXIDE 29 mmol/L (21-32); CHLORIDE 107 mmol/L (101-111); CREATININE 1.2 mg/dL (0.5-1.0); GLOMERULAR FILTR. RATE CALC 45 mL/min (>90); GLUCOSE,RANDOM 96 mg/dL (70-105); POTASSIUM 5.7 mmol/L (3.5-5.1); SODIUM SERUM 142 mmol/L (136-145); UREA NITROGEN, BLOOD 29 mg/dL (7-18)
[2024-10-30 13:20] LABS: INR <= 0.93 (0.85-1.15); PROTHROMBIN TIME 10.5 SEC (9.6-11.6)
[2024-10-30 13:22] LABS: PARTIAL THROMBOPLASTIN TIME 28.2 SEC (26.3-35.5)
[2024-10-30 14:09] VITALS: BP 168/74; PULSE 83; RESP 18; TEMP 97.4
--- NOTE | 2024-10-31 15:04 | NUR ---
RE: LABS REPORTED BMP RESULTS TO DR FREEDMAN, NO NEW ORDERS RECEIVED.
--- NOTE | 2024-10-31 15:08 | NUR ---
RE: LABS REPORTED CBC RESULTS TO DR RODGERS, RECEIVED ORDERS FOR TYPE/CROSS 2 UNITS IN AM.
[~2024-11-01] VITALS: Ht 157.5 cm; Wt 77.6 kg
[2024-11-01] VITALS (30 sets, daily range): BP systolic 88–151; BP diastolic 45–67; PULSE 53–76; RESP 12–19; TEMP 96.3–98.2; O2SAT 100
[~2024-11-01 08:18] MED LIST changes: +ACET-2247 PO; +AMLO-257 PO; -APIX2.5T PO; +FINE10TA PO; -LINA5TAB PO; +LIOT25TA12 PO; -LIOT5TAB11 PO; -NAPR-1023 PO; -OLOP2.5D5 OU
[2024-11-01] MEDS: 0.9%NACL 1000ML 1,000 ML IV ONE (09:26)
[2024-11-01] MEDS: ceFAZolin SODIUM 2 GM VIAL ONE (09:26)
[2024-11-01 09:36] LABS: CREATININE 1.3 mg/dL (0.5-1.0); POTASSIUM 4.7 mmol/L (3.5-5.1)
[2024-11-01] MEDS ORDERED: proPOFol 10 MG/ML 20ML VIAL IV ONE (11:06)
[2024-11-01] MEDS ORDERED: ondanSETRON 4MG INJ ONE (11:06)
[2024-11-01] MEDS ORDERED: FENTanyl CITRate PF 50 MCG/1 ML 2ML VIAL ONE ×2 (11:06→14:34)
[2024-11-01] MEDS ORDERED: rocuRONium bROMide 10MG/1ML 5ML VL ONE (11:06)
[2024-11-01] MEDS ORDERED: ROPivacaine 0.5% 5MG/ML 30ML ONE (11:13)
[2024-11-01] MEDS: acetaMINOPHEN 325 MG TAB ONE (11:18)
[2024-11-01] MEDS ORDERED: SUCCINYLCHOLINE CHLORIDE 20 MG/ML 10 ML VIAL ONE (11:25)
[2024-11-01] MEDS ORDERED: dexaMETHasone SOD PHOSPHATE 10MG/ML 1ML VIAL ONE (11:37)
--- NOTE | 2024-11-01 11:50 | DS ---
Discharge Summary Hospital Course Summary: The patient was admitted to the hospital postoperatively on 11/01/2024 after undergoing left total hip arthroplasty. They did well with routine postoperative pain control. They worked well with physical therapy. They developed some acute blood loss anemia but remained asymptomatic. The hospital course was otherwise uncomplicated. They were subsequently able to be discharged on postoperative day 2 once discharge arrangements were made with the senior care facility. Route Delivery Service Driver(s): None Procedure(s): Left total hip arthroplasty, 11/01/2024 Assessment/Plan: ASSESSMENT: Status post left total hip arthroplasty PLAN: See discharge instructions Discharge Instructions: Begin working with physical therapy at the facility. Remembered do not flex the hip more than 90 and do not cross midline at the knees or ankles for the 1st six weeks. If you are side sleeper place a pillow between the knees and ankles to prevent the legs from crossing. Dressing may be removed 11/04/2024 and left open to air. Showers ok allowing soap and water to run over the wound. Pat dry. Do not submerge wound in tub/pool. Do not apply ointments. Do not apply Betadine. Do not apply peroxide. Ice packs to decrease pain/swelling. Prescriptions have been sent to the pharmacy: *Tylenol #3 1 tab every 4 hours as needed for severe pain. (please call for refills) Cyclobenzaprine 5mg 1 tab every 8 hours as needed for muscle spasm pain. Gabapentin 100mg 1 tab every 8 hours (may discontinue if drowsy). Colace 100mg 1 tab orally twice a day as needed for constipation. Aspirin 325mg for 30 days to prevent blood clots. Call for a follow-up appointment in 2-3 weeks at [facility]. Home Medications: Active Scripts Acetaminophen with Codeine (Acetaminophen-Cod #3 Tablet) 300 Mg-30 Mg Tablet, 1 TAB PO Q4H PRN for MODERATE PAIN (4-6), #42 TAB 0 Refills Prov:ELSIE RODGERS MD 11/03/24 Reported Medications Acetaminophen (Tylenol) 325 Mg Tablet, 325 MG PO Q6HPRN PRN for PAIN, TAB 10/31/24 Finerenone (Kerendia) 10 Mg Tablet, 10 MG PO HS, TAB 10/31/24 Amlodipine Besylate (Amlodipine Besylate) 5 Mg Tablet, 5 MG PO NOON, TAB 10/31/24 Liothyronine Sodium (Liothyronine Sodium) 25 Mcg Tablet, 25 MCG PO ACBKFST, TAB 10/31/24 Pioglitazone HCl (Pioglitazone HCl) 30 Mg Tablet, 30 MG PO ACLUNCH, TAB 12/24/19 Losartan Potassium (Losartan Potassium) 100 Mg Tablet, 100 MG PO DAILY, TAB 03/16/17 Ezetimibe (Zetia) 10 Mg Tablet, 10 MG PO HS, TAB 03/16/17 Metformin HCl (Metformin HCl) 500 Mg Tablet, 500 MG PO BID, TAB 03/16/17 Discontinued Reported Medications Olopatadine HCl (Pazeo) 2.5 Ml Drops, 1 DROP OU AD PRN for ALLERGIES, DROP 12/24/19 Naproxen (Naproxen) 500 Mg Tablet, 500 MG PO BID PRN for PAIN LEVEL 1 TO 5, TAB 12/24/19 Linagliptin (Tradjenta) 5 Mg Tablet, 5 MG PO PCLUNCH, TAB 12/24/19 Liothyronine Sodium (Liothyronine Sodium) 5 Mcg Tablet, 5 MCG PO BID, TAB 03/16/17 Discontinued Scripts Ondansetron (Ondansetron Odt) 4 Mg Tab.rapdis, 4 MG PO TIDP PRN for NAUSEA, #30 TAB 0 Refills Prov:LINSEY FERNANDO MD 08/01/23 Ciprofloxacin HCl (Cipro) 500 Mg Tablet, 1 TAB PO BID for 7 Days, #14 TAB 0 Refills Prov:LINSEY FERNANDO MD 08/01/23 Apixaban (Eliquis) 2.5 Mg Tablet, 2.5 MG PO BID for 30 Days, #60 TAB Prov:ERIC ELIAS NP 12/28/19 ELSIE RODGERS MD Nov 01, 2024 11:50
[2024-11-01] MEDS: amLODIPine 5 MG TAB PO SCH (12:00)
[2024-11-01] MEDS ORDERED: PoTASSium chloRIDE 20MEQ/100ML 100 ML IV PRN (12:00)
[2024-11-01] MEDS ORDERED: PoTASSium chl 10% ELIXIR 20MEQ 20 MEQ/15 ML UDCUP PO PRN (12:00)
[2024-11-01] MEDS ORDERED: CALCIUM CARB 500MG PO PRN (12:00)
[2024-11-01] MEDS ORDERED: ondanSETRON 4MG INJ IVP PRN (12:00)
[2024-11-01] MEDS ORDERED: ketOROlac 15MG/ML VIAL (15MG/ML) IV SCH (12:00)
[2024-11-01] MEDS ORDERED: PoTASSium chloRIDE 20MEQ ER 20 MEQ ERTAB PO PRN (12:00)
[2024-11-01] MEDS: TRANEXAMIC ACID 1000MG/10ML ONE (12:23)
[2024-11-01] MEDS ORDERED: GLYCOPYRROLATE 0.2 MG/ML 5 ML VIAL ONE (14:31)
[2024-11-01] MEDS ORDERED: NEOSTIGMINE METHYLSULFATE 1MG/ML IV ONE (14:32)
[2024-11-01] MEDS: FENTanyl CITRate PF 50 MCG/1 ML 2ML VIAL ONE (15:10)
[2024-11-01] MEDS: acetaMINOPHEN WITH coDEINE 1 TAB TAB PO PRN (16:34)
[2024-11-01] MEDS: CYCLOBENZAPRINE HCL 10 MG TABLET PO PRN (16:34)
--- NOTE | 2024-11-01 16:46 | HMCIMG ---
HIP BILAT 2VW HISTORY: Hip surgery COMPARISON: None TECHNIQUE: 2 images of bilateral hips were obtained. FINDINGS: Total bilateral hip arthroplasty changes are seen. Alignment appears be grossly adequate. Postop changes are seen. There is no acute displaced fracture or dislocation. Degenerative changes are seen. IMPRESSION: 1. Findings as described above.
[2024-11-01] MEDS ORDERED: ceFAZolin SODIUM 2 GM VIAL IVPB SCH (17:00)
[2024-11-01] MEDS: 0.9%NACL 1000ML 1,000 ML IV SCH (17:45)
--- NOTE | 2024-11-01 17:45 | NUR ---
PATIENT INTO ROOM 432 POST LEFT HIP SURGERY DONE BY DR RODGERS. FAMILY AT BEDSIDE. PATIENT STATES SHE IS IN PAIN AND RATES IT A 6/10. SPOKE WITH DR RODGERS, NEW ORDER FOR ONE TIME DOSE OF TORADOL 15 IV. SCDS APPLIED TO PATIENT, VITAL MACHINE CONNECTED TO PATIENT, PATIENT RUNNING NS AT 100MLS. DRESSING TO LEFT HIP IS DRY AND INTACT. PATIENT DENIES ANY SOB. PATIENT GROGGY BUT EASILY AROUSABLE. BED LOCKED AND AT LOWEST POSITION, CALL LIGHT WITHIN REACH. HOME MEDICATIONS HAVE BEEN RESTARTED BY DR RODGERS. PLAN OF CARE ON GOING.
[2024-11-01] MEDS: ceFAZolin SODIUM 2 GM VIAL IVPB SCH (18:08)
[2024-11-01] MEDS: ketOROlac 15MG/ML VIAL (15MG/ML) IV STA (18:09)
--- NOTE | 2024-11-01 18:11 | NUR ---
Pt unable to ambulate d/t pt reports of 06/29 pain with bed mobility Addendum: 11/01/24 at 1811 by BARRON MOON PT PT Amended: Links added.
--- NOTE | 2024-11-01 18:31 | OP ---
Operative Note: DATE OF PROCEDURE: 11/01/24 SURGEON: ELSIE RODGERS MD TRIM LINE WORKER: Lexie Laura ANESTHESIA: General and fascia iliaca block ANESTHESIOLOGIST/CHRISTIAN SCIENCE READER: Ramy Huggins PREOPERATIVE DIAGNOSIS: Left hip osteoarthritis POSTOPERATIVE DIAGNOSIS: Left hip osteoarthritis PROCEDURE: Left total hip arthroplasty ESTIMATED BLOOD LOSS: 200cc INDICATIONS: 84-year-old female with left hip osteoarthritis failing conservative management. After discussion of the risks, benefits, and alternatives, she voluntarily agreed to undergo the aforementioned procedure. IMPLANTS: Mancilla and Nephew 52 mm R3 acetabular component with 6.5 screws x2,OR30 dual mobility construct with a 52 Oxinium liner, 40 mm XL PE insert, 28 mm Oxinium head -3, anthology size 11 standard offset stem DESCRIPTION OF PROCEDURE: Patient was properly identified in the preoperative holding area. Surgical site marking was verified and surgery consent reviewed. The patient was then taken to the operating room and placed in supine position on the OR table. After induction of general anesthesia, preoperative antibiotics were given. The patient was then transitioned in the lateral decubitus position with the left side up. All bony prominences were well-padded. Left lower extremity was then prepped and draped in the usual sterile fashion. Surgical time out was done verifying correct surgery, side, site, and location to be performed. We then began the procedure by making approximately 15 cm long incision sesar tered over the greater trochanter. Here we came sharply through skin down to the fascia. Hemostasis was then achieved using Bovie electrocautery. We then incised fascia in line with the skin incision and finger split the tensor muscle proximally. We then placed our Charnley retractor. At this point we identified the vastus ridge and began elevating the full-thickness soft tissue flap off of the vastus ridge, splitting the vastus lateralis and gluteus muscles as necessary. We then proceeded to externally rotate the femur while making this flap. We resected part of the anterior capsule. The femoral head and neck was then delivered into view. We then dislocated the hip and performed a femoral neck osteotomy approximately half fingerbreadth proximal lesser trochanter. We then placed our retractors around the superior and anterior portion of the acetabulum and began to remove the labrum circumferentially. We then began reaming the acetabulum where we reamed up to a size 51 ensuring appropriate anteversion and abduction. We then proceeded to trial with the size 52 acetabular component and this appeared to sit well. We opened our size 52 acetabular component and after irrigating out the wound malleted this into place. It appeared to have good press-fit however we elected to place two of the 6.5 screws. We drilled and filled the screws in standard fashion in the posterior superior portion of the cup. We then placed the manhole cover on the center of the cup. The wound was thoroughly irrigated out further and we placed the acetabular liner and impacted this in place in standard fashion. We then proceeded to reposition our retractors to elevate the proximal femur out of the wound. We then used the box chisel and canal finder to began preparing the femoral side and sequentially broached up to the aforementioned size stem. Once we felt we had good fit, fill, and control of the femur with the stem in place we then used our trial head component and reduce the hip. We noted increased tension soft tissues and elected to go down on the head to a minus three size. Upon reduction, we had appropriate soft tissue tensioning, limb length and stable range of motion. We therefore dislocated the hip once more removed our trial components thoroughly irrigated the out the wound and placed our final components in standard fashion. The hip was then reduced with the final components in place. It was found to be stable through range of motion with appropriate soft tissue tensioning and appropriate limb length. At this point we placed a bump under the knee and the foot on the male with a stack of towels to allow for internal rotation. We repaired the abductors back to the greater trochanter using #5 Ethibond. We then repaired the rent in the vastus lateralis and gluteus muscles using #1 Vicryl in a running fashion. We removed our Charnley retractor and began to repair the IT band using #1 Vicryl in interrupted [id number] fashion. At this point we began to close her subcutaneous tissue using 2-0 Vicryl. Running 3-0 Monocryl in subcuticular fashion with Dermabond placed over this for the skin. Island barrier dressing was then applied. Patient was returned to supine position with abduction pillow placed, awakened from anesthesia, and taken to the recovery room in stable condition. ELSIE RODGERS MD Nov 01, 2024 18:31
--- NOTE | 2024-11-01 19:30 | NUR ---
teaching patient awake, alert, ox3, multiple family at bedside, ivf infusing well, dressing left hip d/i, ble scds in place, reinforce is as previously done with maximum volume inspiration of 2000, teach patient and family plan of caer, pain management and expected outcome, both verbalize understanding via teach back, due to void
[2024-11-01] MEDS: doCUSate SODIUM 100 MG CAP PO SCH (20:10)
[2024-11-01] MEDS: ASPIRIN 325MG TAB PO SCH (20:10)
[2024-11-01] MEDS: EZETIMIBE 10 MG TAB PO SCH (20:10)
[2024-11-01] MEDS: metFORmin HCL 500 MG TABLET PO SCH (20:10)
--- NOTE | 2024-11-01 22:54 | HMCIMG ---
HIP UNILAT 4VW LEFT REASON: LEFT TOTAL HIP ARTHROPLASTY. COMPARISON: None TECHNIQUE: Fluoroscopic images were obtained. 7 images were obtained. FINDINGS: Please see procedure report by referring physician. IMPRESSION: Intraoperative films.
[2024-11-02] VITALS (7 sets, daily range): BP systolic 104–135; BP diastolic 41–64; PULSE 66–89; RESP 14–20; TEMP 97.6–98.9; O2SAT 91
--- NOTE | 2024-11-02 | NUR ---
void no void, encourage po fluids as tolerated, ivf of ns at 100 cc/hr , bladder scanner performed reading 338 cc, teach patient to call when urge to void
--- NOTE | 2024-11-02 03:00 | NUR ---
vanessa mendez patient tolerated well , back to bed, patient voided 300 cc of clear yellow urine
[2024-11-02 04:01] LABS: HEMATOCRIT 28.1 % (36-48); MEAN CORPUSCULAR HEMOGLOBIN 30.6 pg (27.0-33.0); MEAN CORPUSCULAR HGB CONC 31.7 g/dL (32.0-36.0); MEAN CORPUSCULAR VOLUME 96.6 fL (79-99); RED BLOOD CELL COUNT(AUTO) 2.91 MIL/uL (4.00-5.50); RED CELL DISTRIBUTION WIDTH 14.5 % (11.0-15.5); WHITE BLOOD COUNT (AUTO) 6.7 K/uL (4.8-10.8)
[2024-11-02 04:20] LABS: CREATININE 1.2 mg/dL (0.5-1.0); POTASSIUM 5.2 mmol/L (3.5-5.1)
[2024-11-02] MEDS: Liothyronine Sodium 25 MCG PO SCH (05:24)
[2024-11-02] MEDS: polyETHYLene GLYCol 3350 17 GM POWD.PACK PO SCH (08:00)
[2024-11-02] MEDS: FERROUS FUMARATE 324 MG TABLET PO PRN (08:01)
[2024-11-02] MEDS: LoSARTan 100 MG TABLET PO SCH (08:01)
--- NOTE | 2024-11-02 08:20 | PN ---
Ortho postop day one. This morning patient is still in bed but she is awake alert and oriented. She is reporting adequate pain control. Vital signs have remained stable. She has a febrile. Voiding on her own. Laboratory results reviewed noted to have a drop in hemoglobin and hematocrit as expected after left total hip arthroplasty. Patient is currently asymptomatic and we will address per protocol. Also noted increase in potassium and we will address per protocol. Operative findings discussed with the patient. She is performing incentive spirometry with adequate demonstration. SCD stockings on to bilateral lower extremity. Dressing is intact. Gastrocnemius soft nontender. Negative Homans. Ice is present to op-site. Therapy unable to ambulate yesterday due to sensation of heaviness and weakness. Is pending therapy this morning. I have asked for her to be out of bed the majority of the day. Anticipated discharge goal is skilled nurse facility. Assessment: Status post left total hip arthroplasty. Hyperkalemia. Asymptomatic acute postoperative blood loss anemia. Plan: Continue with Dr. Baeza's total hip arthroplasty protocol and discharge planning. Hyperkalemia addressed per protocol. Asymptomatic acute postoperative blood loss anemia addressed with protocol as necessary Vitals/Labs Vital Signs Date Time Temp Pulse Resp B/P (MAP) Pulse Ox O2 Delivery O2 Flow Rate FiO2 11/02/24 03:48 98.2 66 18 104/41 Room Air 11/02/24 00:23 96 11/01/24 20:00 1 24 Laboratory Tests 11/01/24 09:10 11/02/24 03:08 Medications Current Medications Cefazolin Sodium 2 gm STK-MED ONCE .ROUTE Last administered on 11/01/24at 11:56; Start 11/01/24 at 08:59; Stop 11/01/24 at 08:59; Status DC Sodium Chloride 1,000 ml @ As Directed STK-MED ONCE IV Last administered on 11/01/24at 09:26; Start 11/01/24 at 08:59; Stop 11/01/24 at 08:59; Status DC Propofol 200 mg STK-MED ONCE IV; Start 11/01/24 at 11:06; Stop 11/01/24 at 11:06; Status DC Ondansetron HCl 4 mg STK-MED ONCE .ROUTE; Start 11/01/24 at 11:06; Stop 11/01/24 at 11:06; Status DC Rocuronium [place] 50 mg STK-MED ONCE .ROUTE; Start 11/01/24 at 11:06; Stop 11/01/24 at 11:06; Status DC Fentanyl Citrate 100 mcg STK-MED ONCE .ROUTE; Start 11/01/24 at 11:06; Stop 11/01/24 at 11:06; Status DC Ropivacaine 150 mg STK-MED ONCE .ROUTE; Start 11/01/24 at 11:13; Stop 11/01/24 at 11:13; Status DC Acetaminophen 325 mg STK-MED ONCE .ROUTE; Start 11/01/24 at 11:18; Stop 11/01/24 at 11:18; Status DC Succinylcholine Chloride 200 mg STK-MED ONCE .ROUTE; Start 11/01/24 at 11:25; Stop 11/01/24 at 11:25; Status DC Dexamethasone Sodium Phosphate 10 mg STK-MED ONCE .ROUTE; Start 11/01/24 at 11:37; Stop 11/01/24 at 11:37; Status DC Sodium Chloride 1,000 ml @ 100 mls/hr Q10H IV Last administered on 11/02/24at 08:04; Start 11/01/24 at 12:00; Stop 11/02/24 at 11:59 Polyethylene Glycol 17 gm DAILY PO Last administered on 11/02/24at 08:00; Start 11/02/24 at 09:00; Stop 12/02/24 at 08:59 Bisacodyl 10 mg DAILY PRN RC; Start 11/04/24 at 12:00; Stop 12/04/24 at 11:59 Aspirin 325 mg BID PO Last administered on 11/02/24at 08:01; Start 11/01/24 at 21:00; Stop 12/01/24 at 20:59 Ketorolac Tromethamine 15 mg Q6H PRN IV; Start 11/02/24 at 12:00; Stop 11/07/24 at 11:59 Ferrous Fumarate 324 mg DAILY PRN PO Last administered on 11/02/24at 08:01; Start 11/01/24 at 12:00; Stop 12/01/24 at 11:59 Calcium Carbonate 500 mg Q12H PRN PO; Start 11/01/24 at 12:00; Stop 12/01/24 at 11:59 Ondansetron HCl 4 mg Q6H PRN IVP; Start 11/01/24 at 12:00; Stop 12/01/24 at 11:59 Cefazolin Sodium 2 gm Q8H IVPB; Start 11/01/24 at 17:00; Stop 11/01/24 at 17:45; Status DC Cyclobenzaprine HCl 5 mg Q8H PRN PO Last administered on 11/01/24at 16:34; Start 11/01/24 at 12:00; Stop 12/01/24 at 11:59 Docusate Sodium 100 mg BID PO Last administered on 11/02/24at 08:01; Start 11/01/24 at 21:00; Stop 12/01/24 at 20:59 Ketorolac Tromethamine 15 mg Q8H IV; Start 11/01/24 at 12:00; Stop 11/01/24 at 14:38; Status DC Potassium Chloride 100 ml @ 100 mls/hr AD PRN IV; Start 11/01/24 at 12:00; Stop 12/01/24 at 11:59 Potassium Chloride 20 meq AD PRN PO; Start 11/01/24 at 12:00; Stop 12/01/24 at 11:59 Potassium Chloride 20 meq AD PRN PO; Start 11/01/24 at 12:00; Stop 12/01/24 at 11:59 Amlodipine Besylate 5 mg NOON PO; Start 11/01/24 at 12:00; Stop 12/01/24 at 11:59 EZETIMIBE 10 mg HS PO Last administered on 11/01/24at 20:10; Start 11/01/24 at 21:00; Stop 12/01/24 at 20:59 Losartan Potassium 100 mg DAILY PO Last administered on 11/02/24at 08:01; Start 11/02/24 at 09:00; Stop 12/02/24 at 08:59 Metformin HCl 500 mg BID PO Last administered on 11/02/24at 08:01; Start 11/01/24 at 21:00; Stop 12/01/24 at 20:59 Pioglitazone HCl 30 mg ACLUNCH PO; Start 11/02/24 at 11:30; Stop 12/02/24 at 11:29 Home Med Finerenone (Kerendia) 10 MG HS PO; Start 11/01/24 at 21:00; Stop 12/01/24 at 20:59 Home Med Liothyronine Sodium 25 MCG ACBKFST PO; Start 11/02/24 at 07:30; Stop 12/02/24 at 07:29 Tranexamic Acid 1,000 mg STK-MED ONCE .ROUTE Last administered on 11/01/24at 12:23; Start 11/01/24 at 12:22; Stop 11/01/24 at 12:22; Status DC Glycopyrrolate 1 mg STK-MED ONCE .ROUTE; Start 11/01/24 at 14:31; Stop 11/01/24 at 14:32; Status DC Neostigmine Methylsulfate 10 mg STK-MED ONCE IV; Start 11/01/24 at 14:32; Stop 11/01/24 at 14:32; Status DC Fentanyl Citrate 100 mcg STK-MED ONCE .ROUTE; Start 11/01/24 at 14:34; Stop 11/01/24 at 14:34; Status DC Acetaminophen/ Codeine Phosphate 1 tab Q4H PRN PO Last administered on 11/02/24at 08:01; Start 11/01/24 at 15:00; Stop 12/01/24 at 14:59 Fentanyl Citrate 100 mcg STK-MED ONCE .ROUTE Last administered on 11/01/24at 15:10; Start 11/01/24 at 14:53; Stop 11/01/24 at 14:56; Status DC Cefazolin Sodium 2 gm Q8H IVPB Last administered on 11/02/24at 03:08; Start 11/01/24 at 19:00; Stop 11/02/24 at 03:01; Status DC Ketorolac Tromethamine 15 mg ONCE STAT IV Last administered on 11/01/24at 18:09; Start 11/01/24 at 17:49; Stop 11/01/24 at 17:56; Status DC JORGE HOLLIS NP Nov 02, 2024 08:20
--- NOTE | 2024-11-02 10:00 | NUR ---
ORTHO COORDINATOR: TEACHING REGARDING DVT AND PNEUMONIA PREVENTION. PAIN EXPECTATIONS, PAIN MANAGEMENT. PATIENT IN BED. SEVERAL FAMILY MEMBERS AT BEDSIDE. CASE MANAGEMENT TO ROOM. WILL RETURN. 1015 RETURNED. TAJIK SPEAKING ONLY. USED HOSPITAL DINING ROOM CASHIER. INCENTIVE SPIROMETER ON BEDSIDE TRAY. PATIENT REPORTS PERFORMING 10 TIMES THE PAST HOUR. RATIONALE FOR USE PROVIDED. PATIENT AND FAMILY VERBALIZED UNDERSTANDING TO INSTRUCTIONS. PATIENT RETURN DEMONSTRATED FOOT FLEXION AND EXTENSION EXERCISES. RATIONALE PROVIDED. PATIENT AND FAMILY VERBALIZED UNDERSTANDING. PHYSICAL THERAPY AT BEDSIDE, WILL RETURN. 1100 HOSPITAL DINING ROOM CASHIER AT BEDSIDE. REVIEWED PAIN EXPECTATIONS, PATIENT REPORTS HIP SURGERY IN PAST TO LEFT SIDE. NUMERIC PAIN SCALE REVIEWED WITH PATIENT AND FAMILY. INSTRUCTED PATIENT MUST CALL FOR PAIN MEDICATION AND TO PROVIDE A NUMERIC RATING AND TYPE OF PAIN. PATIENT AND FAMILY VERBALIZED UNDERSTANDING. PATIENT INSTRUCTED SHE WAS TO SHOWER BEGINNING TODAY AND IS EXPECTED TO PARTICIPATE IN PHYSICAL THERAPY SESSIONS. FAMILY ASKED IF PATIENT COULD BRING CLOTHING FROM HOME. INSTRUCTED YES, BUT PATIENT MUST CHANGE INTO NEW UNWORN CLOTHES AFTER EACH SHOWER. RATIONALE PROVIDED. PATIENT AND FAMILY VERBALIZED UNDERSTANDING TO ALL INSTRUCTIONS. PATIENT EXPRESSED DESIRE TO SHOWER AFTER PHYSICAL THERAPY THIS AFTERNOON. NO ADDITIONAL QUESTIONS/CONCERNS AT THIS TIME.
--- NOTE | 2024-11-02 12:15 | NUR ---
DC PLAN VISITED WITH PATIENT. PATIENT LIVES WITH DAUGHTER. PROVIDER 4 HOURS. KLAUS WILL. GO PLAN FOR THERAPY. RUSS SIGNED FOR ONEL. PACKET MADE AND SENT. PENDING AUTH. Addendum: 11/02/24 at 1216 by ROXY ZAMBRANO RN CM Amended: Links added.
[2024-11-02] MEDS: PIOGLITAZONE 30MG TAB PO SCH (12:31)
[2024-11-02] MEDS: ketOROlac 15MG/ML VIAL (15MG/ML) IV PRN (12:31)
[2024-11-03 00:20] VITALS: BP 133/60; PULSE 79; RESP 18; TEMP 98.6
[2024-11-03 04:03] VITALS: BP 154/62; PULSE 86; RESP 17; TEMP 98.2
[2024-11-03 07:20] VITALS: BP 137/70; PULSE 97; RESP 18; TEMP 98.3
[2024-11-03 10:04] VITALS: O2SAT 95
[2024-11-03 11:15] VITALS: BP 119/54; PULSE 78; RESP 18; TEMP 98.5
--- NOTE | 2024-11-03 13:10 | NUR ---
DC FELLED SEAM OPERATOR CHAINSTITCH ALFRED SAID PATIENT IS ACCEPTED. [facility] [phone]. PASRR SENT WILL GO VIA VAN. DR. RODGERS AND NURSE NOTIFIED. Addendum: 11/03/24 at 1316 by ROXY ZAMBRANO RN CM Amended: Links added.
[2024-11-03] MEDS ORDERED: ACET-2079 PO ×2 (13:52→13:54)
[2024-11-03] MEDS ORDERED: DOCU-116 PO (13:52)
[2024-11-03] MEDS ORDERED: ASPI-1026 PO (13:52)
[2024-11-03] MEDS ORDERED: CYCL-309 PO (13:52)
[2024-11-03 15:15] VITALS: BP 142/62; RESP 18; TEMP 98.3
--- NOTE | 2024-11-03 17:42 | NUR ---
1710 ATTEMPTED SEVERAL TIMES TO CALL REPORT TO REMY Frank/R. NO ANSWER 1737 REPORT GIVEN TO LISHA SORIANO; WILL SEND VAN TO MANAGER CARDIAC PATIENT
--- NOTE | 2024-11-03 18:33 | NUR ---
ARLENE VILLANUEVA FROM [facility] HERE TO TRANSPORT PATIENT. PAPERORK PROVIDED; IV REMOVED
[2024-11-04] MEDS ORDERED: BisaCODYL 10 MG SUPP.RECT RC PRN (12:00)
== END 2024-11-03 18:48 ==
LOC: DAH 08:18 → DAHIP 08:19 → 4AH 17:45
PROVIDERS: ADMIT Student in an Organized Health Care Education/Training Program; ATTEND Student in an Organized Health Care Education/Training Program
DX: M16.12 Unilateral primary osteoarthritis, left hip (principal); G89.18 Other acute postprocedural pain; D62 Acute posthemorrhagic anemia; E87.5 Hyperkalemia; K21.9 Gastro-esophageal reflux disease without esophagitis; E11.9 Type 2 diabetes mellitus without complications; E78.5 Hyperlipidemia, unspecified; E03.9 Hypothyroidism, unspecified; Z79.84 Long term (current) use of oral hypoglycemic drugs; Z79.899 Other long term (current) drug therapy
CPT/HCPCS: 82040; 80048 ×3; 85025; 85610; 85730; 84134; 86140; 36415 ×3; 87641; 64447; 27130; 96365; 96375; 86850; 86900; 86901; 86923; 82948 ×9; 73503; 73521; 97161; 97530 ×5; 96376; 96366; 85027; 97116 ×4; G0378 ×46; A4223 ×2; A4663; J3010 ×3; J3490 ×3; J1100; J0330; J7030 ×2; J2704; J2405; J2710; J2795; J1885 ×2; J0690 ×3; A4649 ×2; A6255; A4215; A4213; A4222; A4221; A4216; C1776